=== PATIENT | male | born 1990 | race Asian ===

== ENCOUNTER 2020-05-20 00:34 | Emergency (ER) | payer SELFPAY ==
[~2020-05-20] VITALS: Ht 162.6 cm; Wt 83.9 kg
--- OUTSIDE RECORDS SUMMARY | 2020-05-20 00:44 | XMS REPORT | Continuity of Care Document ---
Author Organization Unknown Address Unknown Phone Unavailable Allergies There is no data. Medications There is no data. Problems There is no data. Procedures There is no data. Results There is no data. Encounters ACCT No. Visit Date/Time Discharge Status Pt. Type Provider Facility Loc./Unit Complaint [id number] 02/19/2018 11:40:00 02/19/2018 23:59: 59 CLS Outpatient [facility]
--- OUTSIDE RECORDS SUMMARY | 2020-05-20 00:44 | XMS REPORT ---
Author Author Shannon BELTRE Organization [facility] Address [address] [place] [address] Care Team Providers Care Nat Instructor Name Role Phone RUBA BELTRE Unavailable PROBLEMS Unknown Problems ALLERGIES No Known Allergies ENCOUNTERS Encounter Location Date Diagnosis [facility] [address] [facility] [id number] [place] [address] Jan, Pharyngitis, unspecified jose ology J02.9 and Cough R05 IMMUNIZATIONS No Known Immunizations SOCIAL HISTORY Never Assessed REASON FOR VISIT Cough, runny nose and sore throat x2 weeks JStrasserRN PLAN OF CARE Activity Details Follow Up prn Reason: VITAL SIGNS Temperature 97.3 degrees Fahrenheit 2018-02-19 Heart Rate 108 bpm 2018-02-19 Respiratory Rate 22 2018-02-19 Blood pressure systolic 140 mmHg 2018-02-19 Blood pressure diastolic 92 mmHg 2018-02-19 MEDICATIONS Medication Instructions Dosage Frequency Start Date End Date Duration S tatus Benzonatate 100 mg Orally Three times a day 1 capsule as needed 8h Jan, Active Amoxicillin 500 mg Orally every 12 hrs 1 tablet 12h Jan, 201 8 8 Feb, 2018 10 day(s) Active Tylenol Cold Active RESULTS No Results PROCEDURES No Known procedures INSTRUCTIONS MEDICATIONS ADMINISTERED No Known Medications
[2020-05-20] MEDS ORDERED: NS IV 1000 ML 1,000 ML IV SCH ×2 (00:55)
[2020-05-20] MEDS ORDERED: DOXYCYCLINE 100 MG (VIBRAMYCIN) TABLET PO ONE (01:00)
--- NOTE | 2020-05-20 01:04 | ED Integumentary General ---
General Chief Complaint: Allergic Reaction Stated Complaint: RASH,FEVER 100. Nursing Triage Note: PT AMBULATE TO ROOM 06 WITH C/O RASH AND FEVER. PT REPORTS FEVER OF 101.5 AT HOME X1 HOUR CREDIT RISK ANALYST AND TREATED WITH TYLENOL. PT REPORT GOING FISHING AND THE RASH STARTED AFTER THIS. PT REPORTS TREATING RASH WITH HYDROCORTISONE CREAM. Source: patient Exam Limitations: no limitations History of Present Illness Date Seen by Provider: May 20, 2020 Time Seen by Provider: 00:44 Initial Comments The patient presents to ER by private conveyance from home with chief complaint that he spiked a fever about an hour prior to coming into the 101. He took Tylenol and that the body aches go away. He's also had a rash for the past week. Doing a lot of fishing outdoors in the past couple weeks. He says the rash started as itchy red spot over the back of his left leg and has since spread to others places. It spares his palms and soles. He's not having a sore throat cough shortness of breath chest pain headache diarrhea nausea or vomiting. He had been treating the rash with just a [id number] hydrocortisone cream. He stopped taking his daily allergy medicines Zyrtec about 2 weeks ago. He does not take any other routine medicines or have any other significant medical problems. No known sick contacts. Allergies and Home Medications Allergies Coded Allergies: shrimp (Verified Allergy, Unknown, 05/20/20) Patient Home Medication List Home Medication List Reviewed: Yes Review of Systems Review of Systems Constitutional: chills, fever, malaise EENTM: No ear discharge, No ear pain Respiratory: No cough, No phlegm, No short of breath Cardiovascular: No chest pain, No edema Gastrointestinal: No abdominal pain, No diarrhea, No nausea, No vomiting Genitourinary: No discharge, No dysuria Musculoskeletal: No back pain, No joint pain Skin: see HPI All Other Systems Reviewed Negative Unless Noted: Yes Past Bhjkrkb-Ghsqli-Wibxua Hx Patient Social History Alcohol Use: Occasionally Uses Recreational Drug Use: No Smoking Status: Current Everyday Smoker Type Used: Cigarettes (0.5 ppd) 2nd Hand Smoke Exposure: Yes Recent Foreign Travel: No Contact w/Someone Who Travel: No Recent Infectious Disease Expo: No Recent Hopitalizations: No Physical Abuse: No Sexual Abuse: No Mistreated: No Fear: No Seasonal Allergies Seasonal Allergies: Yes Past Medical History Surgeries: No Respiratory: No Cardiac: No Neurological: No Genitourinary: No Gastrointestinal: No Musculoskeletal: No Endocrine: No HEENT: No Cancer: No Psychosocial: No Integumentary: No Blood Disorders: No Physical Exam Vital Signs Vital Signs - First Documented 05/20/20 00:48 Temp 37.6 Pulse 133 Resp 19 B/P (MAP) 139/85 (103) O2 Delivery Room Air Capillary Refill : Less Than 3 Seconds General Appearance: WD/WN, mild distress HEENT: PERRL/EOMI, normal ENT inspection, TMs normal, pharynx normal Neck: non-tender, full range of motion, supple, normal inspection Cardiovascular: normal peripheral pulses, regular rate, rhythm Respiratory: lungs clear, normal breath sounds, no respiratory distress, no accessory muscle use Extremities: non-tender, normal inspection, normal capillary refill Neurologic/Psychiatric: alert, normal mood/affect, oriented x 3 Skin: rash (splotchy macular erythematous rash with central raised ulceration from excoriation over upper and lower extremities around the creases and waistband as well as bilateral groin.), other (blanchable erythematous rash without petechiae or purpura) Skin Problem Location: generalized Progress/Results/Core Measures Results/Orders Lab Results Laboratory Tests Test 05/20/20 01:00 Range/Units White Blood Count 14.3 H 4.3-11.0 10^3/uL Red Blood Count 5.91 H 4.35-5.85 10^6/uL Hemoglobin 14.5 13.3-17.7 G/DL Hematocrit 44 40-54 % Mean Corpuscular Volume 74 L 80-99 FL Mean Corpuscular Hemoglobin 25 25-34 PG Mean Corpuscular Hemoglobin Concent 33 32-36 G/DL Red Cell Distribution Width 14.8 H 10.0-14.5 % Platelet Count 261 130-400 10^3/uL Mean Platelet Volume 10.5 H 7.4-10.4 FL Neutrophils (%) (Auto) 77 H 42-75 % Lymphocytes (%) (Auto) 11 L 12-44 % Monocytes (%) (Auto) 8 0-12 % Eosinophils (%) (Auto) 4 0-10 % Basophils (%) (Auto) 0 0-10 % Neutrophils # (Auto) 11.1 H 1.8-7.8 X 10^3 Lymphocytes # (Auto) 1.5 1.0-4.0 X 10^3 Monocytes # (Auto) 1.2 H 0.0-1.0 X 10^3 Eosinophils # (Auto) 0.5 H 0.0-0.3 10^3/uL Basophils # (Auto) 0.0 0.0-0.1 10^3/uL Prothrombin Time 13.5 12.2-14.7 SEC INR Comment 1.0 0.8-1.4 Activated Partial Thromboplast Time 33 24-35 SEC Sodium Level 140 135-145 MMOL/L Potassium Level 3.6 3.6-5.0 MMOL/L Chloride Level 106 98-107 MMOL/L Carbon Dioxide Level 22 21-32 MMOL/L Anion Gap 12 5-14 MMOL/L Blood Urea Nitrogen 15 7-18 MG/DL Creatinine 1.27 0.60-1.30 MG/DL Estimat Glomerular Filtration Rate > 60 BUN/Creatinine Ratio 12 Glucose Level 121 H 70-105 MG/DL Lactic Acid Level 1.99 0.50-2.00 MMOL/L Calcium Level 9.0 8.5-10.1 MG/DL Corrected Calcium 8.8 8.5-10.1 MG/DL Total Bilirubin 0.7 0.1-1.0 MG/DL Aspartate Amino Transf (AST/SGOT) 22 5-34 U/L Alanine Aminotransferase (ALT/SGPT) 35 0-55 U/L Alkaline Phosphatase 66 40-136 U/L Total Protein 7.2 6.4-8.2 GM/DL Albumin 4.3 3.2-4.5 GM/DL My Orders Orders - HASEEB ROY Cbc With Automated Diff (05/20/20 00:55) Comprehensive Metabolic Panel (05/20/20 00:55) Blood Culture (05/20/20 00:55) Sputum Culture (05/20/20 00:55) Protime With Inr (05/20/20 00:55) Partial Thromboplastin Time (05/20/20 00:55) Chest 1 View, Ap/Pa Only (05/20/20 00:55) Ed Iv/Invasive Line Start (05/20/20 00:55) Ed Iv/Invasive Line Start (05/20/20 00:55) Vital Signs Adult Sepsis Patie Q15M (05/20/20 00:55) O2 (05/20/20 00:55) Remove Rings In Anticipation O (05/20/20 00:55) Lactic Acid Analyzer (05/20/20 00:55) Ns Iv 1000 Ml (Sodium Chloride 0.9%) (05/20/20 00:55) Ed Iv/Invasive Line Start (05/20/20 00:55) Ns Iv 1000 Ml (Sodium Chloride 0.9%) (05/20/20 00:55) Doxycycline Hyclate Tablet (Vibramycin T (05/20/20 01:00) Tick Panel With Lyme Eia (05/20/20 00:55) Medications Given in ED Current Medications Medications Dose Ordered Sig/Dereck Route Start Time Stop Time Status Last Admin Dose Admin Doxycycline Hyclate 100 mg ONCE ONCE PO 05/20/20 01:00 05/20/20 01:01 DC 05/20/20 01:06 100 MG Vital Signs/I&O 05/20/20 00:48 Temp 37.6 Pulse 133 Resp 19 B/P (MAP) 139/85 (103) O2 Delivery Room Air Blood Pressure Mean: 103 Progress Progress Note #1: Time: 01:03 Progress Note Patient is afebrile but tachycardic around 120 weeks per minute. With his history of fever he needs septic criteria. With his rash and recently being exposed some fluids I would suspect an arthropod borne illness and start him on doxycycline. There is an order on IV doxycycline and it may be reasonable to try and treat him outpatient so we'll start with oral antibiotics. He has no problems with nausea diarrhea or other malabsorption that this provider is aware of at this time. Plan to give him 2 L of lactated Ringer's which week. 20 mL/kg. We'll obtain a tick panel, blood cultures and lactate. After a short observation period in the ER and getting labs back then we can discuss if he wants to try outpatient versus inpatient therapy. The patient does not have any headache or evidence of meningismus on examination. He is neurologically intact. Progress Note #2: Time: 02:18 Progress Note Patient's had a little more than a liter of fluids in his heart rate is in the 90s. He feels fine without body aches chills nausea or malaise. Plan to let him complete his fluid bolus. We have discussed observation in the hospital versus outpatient therapy and he would prefer to do outpatient therapy at this time. We discussed return precautions. We have encouraged him to self quarantine and he asked about COVID-19. We explained to him how to get tested outpatient. Diagnostic Imaging Diagonstic Imaging: Xray Plain Films/CT/US/NM/MRI: chest Comments No acute cardiopulmonary processes noted. Reviewed: Reviewed by Me Departure Impression Primary Impression: Tick-borne disease Disposition: HOME, SELF-CARE Condition: Stable Departure-Patient Inst. Decision time for Depature: 02:28 Referrals: [facility] (PCP/Family) Primary Care Physician Patient Instructions: Rickettsial Infections (DC) Add. Discharge Instructions: We are testing for several tickborne illnesses and we'll have the results by early next week. Start taking doxycycline 1 tablet twice a day with food for the next 10 days. Drink lots of fluids. Sports drinks are recommended. Tylenol 1000 mg every 8 hours as necessary for body aches or fever. Ibuprofen 800 mg every 8 hours as necessary for body aches or fever. Stay home from work until 24 hours after symptoms are gone and or the antibiot ics are completed. Return to the ER if you're having intractable nausea, pain or shortness of air. If you begin to have confusion or other worrisome symptoms then please return to the ER. You may follow-up with your primary care office by calling for an appointment next week. All discharge instructions reviewed with patient and/or family. Voiced understanding. Scripts Doxycycline Hyclate (Doxycycline Hyclate) 100 Mg Tablet 100 MG PO BID for 10 Days, #20 TAB 0 Refills Prov: HASEEB ROY 05/20/20 HASEEB ROY May 20, 2020 01:04
[2020-05-20 01:14] LABS: BASOPHILS % (AUTO) 0 % (0-10); EOSINOPHILS # (AUTO) 0.5 10^3/uL (0.0-0.3); EOSINOPHILS % (AUTO) 4 % (0-10); HEMATOCRIT 44 % (40-54); HEMOGLOBIN 14.5 G/DL (13.3-17.7); LYMPHOCYTES # (AUTO) 1.5 X 10^3 (1.0-4.0); LYMPHOCYTES % (AUTO) 11 % (12-44); MEAN CORPUSCULAR HEMOGLOBIN 25 PG (25-34); MEAN CORPUSCULAR HGB CONC 33 G/DL (32-36); MEAN CORPUSCULAR VOLUME 74 FL (80-99); MEAN PLATELET VOLUME 10.5 FL (7.4-10.4); MONOCYTES # (AUTO) 1.2 X 10^3 (0.0-1.0); MONOCYTES % (AUTO) 8 % (0-12); NEUTROPHILS # (AUTO) 11.1 X 10^3 (1.8-7.8); NEUTROPHILS % (AUTO) 77 % (42-75); PLATELET COUNT 261 10^3/uL (130-400); RED CELL DISTRIBUTION WIDTH 14.8 % (10.0-14.5); WHITE BLOOD COUNT 14.3 10^3/uL (4.3-11.0)
[2020-05-20 01:25] LABS: ALBUMIN 4.3 GM/DL (3.2-4.5); PROTHROMBIN TIME PATIENT 13.5 SEC (12.2-14.7)
[2020-05-20 01:26] LABS: CHLORIDE 106 MMOL/L (98-107); POTASSIUM 3.6 MMOL/L (3.6-5.0); SODIUM 140 MMOL/L (135-145)
[2020-05-20 01:28] LABS: GLUCOSE 121 MG/DL (70-105); TOTAL PROTEIN 7.2 GM/DL (6.4-8.2)
[2020-05-20 01:29] LABS: CARBON DIOXIDE 22 MMOL/L (21-32)
[2020-05-20 01:30] LABS: BILIRUBIN,TOTAL 0.7 MG/DL (0.1-1.0)
[2020-05-20 01:31] LABS: ALKALINE PHOSPHATASE 66 U/L (40-136)
[2020-05-20 01:32] LABS: CREATININE SERUM 1.27 MG/DL (0.60-1.30); GFR ESTIMATED > 60
[2020-05-20 01:33] LABS: BUN/CREATININE RATIO 12
[2020-05-20 01:35] LABS: ALANINE AMINOTRANSFERASE 35 U/L (0-55)
[2020-05-20] MEDS ORDERED: DOXY100T2 PO (02:28)
[2020-05-20 02:38] VITALS: BP 134/79
--- NOTE | 2020-05-20 07:00 | Diagnostic Imaging Report ---
Indication: Fever. Comparison: None. Findings: Single view of the chest demonstrates clear lungs bilaterally. The heart is normal. There is no pneumothorax. Osseous structures normal. Impression: Negative chest. Dictated by: Dictated on workstation # [id number]
== END 2020-05-20 02:37 | disposition home or self-care (01) ==
LOC: ER 00:40
DX: A93.8 Other specified arthropod-borne viral fevers (principal); F17.210 Nicotine dependence, cigarettes, uncomplicated
CPT/HCPCS: 36415; 71045; 80053; 83605; 85025; 85610; 85730; 86618; 86666; 86668; 86757; 87040